=== PATIENT | male | born 1955 | race Caucasian/White ===

== ENCOUNTER 2021-12-02 18:54 | Emergency (ER) | payer OTHER ==
[~2021-12-02] VITALS: Ht 188 cm; Wt 113.4 kg
[2021-12-02] MEDS ORDERED: 0.9%NACL 1000ML 1,000 ML IV ONE (19:30)
[2021-12-02 19:33] LABS: BASOPHILS % (AUTO) 0.2 % (0.0-5.0); EOSINOPHILS % (AUTO) 0.1 % (0.0-8.0); MEAN CORPUSCULAR HEMOGLOBIN 29.3 pg (27.0-33.0); MEAN CORPUSCULAR HGB CONC 34.9 g/dL (32.0-36.0); MEAN CORPUSCULAR VOLUME 83.9 fL (79-99); MONOCYTES % (AUTO) 7.3 % (3.0-13.0); NEUTROPHILS % (AUTO) 86.7 % (40.0-77.0); PLATELET COUNT (AUTO) 228 K/uL (130-400); RED BLOOD CELL COUNT(AUTO) 4.41 MIL/uL (4.50-6.20); RED CELL DISTRIBUTION WIDTH 12.9 % (11.0-15.5); WHITE BLOOD COUNT (AUTO) 17.8 K/uL (4.8-10.8)
[2021-12-02 19:44] LABS: POTASSIUM 3.2 mmol/L (3.5-5.1)
[2021-12-02 19:53] LABS: ALBUMIN 2.2 g/dL (3.5-5.0)
[2021-12-02 20:35] VITALS: BP 137/67
== END 2021-12-03 06:00 | disposition home or self-care (01) ==
LOC: EDH 18:54
DX: T67.5XXA Heat exhaustion, unspecified, initial encounter (principal); E86.0 Dehydration; X58.XXXA Exposure to other specified factors, initial encounter; Y93.89 Activity, other specified; Y92.89 Other specified places as the place of occurrence of the external cause; Y99.8 Other external cause status
CPT/HCPCS: 99284; 96360; 82550; 84484; 80053; 85025; 36415; 93005; J7030